=== PATIENT | female | born 2000 | race African-American/Black ===

== ENCOUNTER 2025-06-22 21:08 | Emergency (ER) | payer MEDICAID ==
[~2025-06-22] VITALS: Ht 170.2 cm; Wt 57.2 kg
[2025-06-22 21:21] VITALS: O2SAT 100
[2025-06-22] MEDS ORDERED: IBUP-1455 MT (22:11)
[2025-06-22] MEDS ORDERED: METH-653 MT (22:11)
[2025-06-22] MEDS: KETOROLAC 30MG/ML VIAL IM ONE (22:41)
[2025-06-22] MEDS: METHOCARBAMOL 500MG TABLET PO ONE (22:41)
[2025-06-22 22:47] VITALS: BP 126/82; PULSE 106; RESP 20; TEMP 36.6; O2SAT 100
== END 2025-06-22 22:50 | disposition home or self-care (01) ==
LOC: ER 21:16
DX: G89.29 Other chronic pain (principal); M54.2 Cervicalgia; Z98.890 Other specified postprocedural states
CPT/HCPCS: 99283; 96372; J1885